=== PATIENT | female | born 1990 | race Hispanic/Latino ===

== ENCOUNTER 2017-10-03 14:31 | Observation (INO) | payer MEDICAID ==
[~2017-10-03] VITALS: Ht 167.6 cm; Wt 116.6 kg
[2017-10-03 15:06] LABS: BILIRUBIN,URINE Small (NEGATIVE); COLOR,URINE Dark Yellow (YELLOW); GLUCOSE, URINE (UA) Negative (NEGATIVE); KETONES,URINE Trace mg/dL (NEGATIVE); LEUKOCYTE ESTERASE ,URINE Moderate (NEGATIVE); NITRATE,URINE Negative (NEGATIVE); OCCULT BLOOD,URINE Negative (NEGATIVE); PH,URINE 6.5 (5.0-8.0); PROTEIN,URINE POS 1+ (NEGATIVE)
[2017-10-03 15:23] LABS: APPEARANCE,URINE CLOUDY (CLEAR)
[2017-10-03] MEDS ORDERED: LACTATED RINGERS 1000ML IV SCH (15:45)
[2017-10-03 16:23] LABS: BACTERIA,URINE Moderate /HPF (None Seen)
[2017-10-03 16:25] LABS: SQUAMOUS EPITHELIAL CELL,UR Rare /HPF (0-2)
== END 2017-10-03 16:52 | disposition home or self-care (01) ==
LOC: EDH 14:31 → LDH 14:32
PROVIDERS: ADMIT Obstetrics & Gynecology; ATTEND Obstetrics & Gynecology
DX: O26.893 Other specified pregnancy related conditions, third trimester (principal); O62.9 Abnormality of forces of labor, unspecified; Z3A.30 30 weeks gestation of pregnancy
CPT/HCPCS: 81001; 99285; G0378 ×2; J7120; 96360